=== PATIENT | female | born 1975 | race Caucasian/White ===

== ENCOUNTER 2020-08-13 14:26 | Emergency (ER) | payer SELFPAY ==
[2020-08-13 14:27] VITALS: BP 165/101; BP 167/88; PULSE 100; PULSE 99; RESP 18; TEMP 36.6; O2SAT 97; O2SAT 98; BMI 37.8
[2020-08-13 14:57] VITALS: BP 145/71; PULSE 97; RESP 18; O2SAT 99
[2020-08-13 15:27] VITALS: BP 161/81; PULSE 98; RESP 18; O2SAT 99
[2020-08-13 15:30] VITALS: BP 156/81; PULSE 97; RESP 17; O2SAT 97
--- NOTE | 2020-08-13 15:30 | [facility].EDGENADL ---
ED Disposition Clinical Impression: Toothache, Dental caries, Tinea capitis, Mouth pain Disposition: Home, Self-Care Condition on Discharge: Good Additional Instructions: Griseofulvin and clindamycin as prescribed. Peridex mouthwash. You are being provided with a list of physicians available for follow-up of your condition. Please call a physician on this list to arrange a follow-up appointment as soon as possible. Follow-up with ENT for mouth sores. Prescriptions: clindamycin HCL [Clindamycin HCl] 300 mg PO QID #40 cap Prescription Printed Griseofulvin, Microsize [Griseofulvin] 500 mg PO DAILY #56 tab Prescription Printed Chlorhexidine Gluconate [Peridex] 15 ml MM BID #1 bottle Prescription Printed Referrals: PCP,María [Primary Care Provider] - Byron Almaguer MD [Staff Physician] - - Critical Care Critical Care Time: No Attestation: On 08/13/20, the high probability of a clinically significant, sudden or life threatening deterioration of the following system(s) required my full and direct attention, intervention and personal management. The time I documented below is in addition to time spent performing reported procedures but includes the following listed in this critical care notation. Medical Decision Making - Artemio Inquiry Pt receiving controlled substance: No Vital Signs: 08/13/20 14:27 08/13/20 14:57 08/13/20 15:27 Temperature 97.9 F Temperature Source Oral Pulse Rate [Right] 99 H 97 H 98 H Respiratory Rate 18 18 18 Blood Pressure [Right Arm] 165/101 H 145/71 H 161/81 H Blood Pressure Mean [Right Arm] 122 95 107 Blood Pressure Source [Right Arm] Automatic Cuff Blood Pressure Position [Right Arm] Sitting Sitting Supine 02 Sat by Pulse Oximetry 97 99 99 08/13/20 15:30 08/13/20 16:00 Temperature Temperature Source Pulse Rate [Right] 97 H 102 H Respiratory Rate 17 16 Blood Pressure [Right Arm] 156/81 H 167/88 H Blood Pressure Mean [Right Arm] 106 114 Blood Pressure Source [Right Arm] Blood Pressure Position [Right Arm] Supine Sitting 02 Sat by Pulse Oximetry 97 99 Medical Decision Narrative: Patient requests antibiotic, medicated mouthwash, treatment for tinea capitis. General Adult HPI - General Chief complaint: PAIN Stated complaint: possible cysts in mouth, swollen lymph nodes Time Seen by Provider: 08/13/20 16:13 Mode of Arrival: Family Vehicle Limitations: No Limitations Description of Symptoms (Recalled from ER Triage Doc. by RN): PT C/O SWOLLEN LYMP NODES, SORE THROAT, LESIONS ON TOUNGE AND POSSIBLE DENTAL ABSCESS. PT REPORTS SYMPTOMS HAVE BEEN OCCURING FOR THE LAST 6 MONTHS. PT DENIES ANY FEVERS, CHILLS, N/V/D. - History of Present Illness HPI narrative: Patient states that beginning in 2019 she had 32 knots on her head. Also had knots in her mouth. Had to have 3 teeth removed in 2017. States that she has been referred to ENT but she never did go for follow-up. She now has multiple complaints. She feels like she has sores on the inside of her mouth and the right buccal area, toothache of her right rearmost mandibular molar, swollen lymph nodes in her neck, she also believes that she has ringworm of her scalp. She has bare areas and hair that breaks off. - Related Data Previous Rx's Medication Instructions Recorded Chlorhexidine Gluconate [Peridex] 15 ml MM BID #1 bottle 08/13/20 Griseofulvin, Microsize 500 mg PO DAILY #56 tab 08/13/20 [Griseofulvin] clindamycin HCL [Clindamycin HCl] 300 mg PO QID #40 cap 08/13/20 Allergies Allergy/AdvReac Type Severity Reaction Status Date / Time morphine Allergy Verified 08/13/20 16:20 [facility] History - Hepatitis A Screen Drug use history?: No High risk sexual behaviors?: No History of sexually transmitted infection?: No Currently employed?: No Childcare worker?: No Do you have indoor plumbing?: Yes Do you have electricity?: Yes Attestation statement:: This patient has been screened for
[2020-08-13 16:00] VITALS: BP 167/88; PULSE 102; RESP 16; O2SAT 99
[2020-08-13 16:50] VITALS: BP 167/88; PULSE 102; RESP 16; TEMP 36.6; O2SAT 99
== END 2020-08-13 16:55 | disposition home or self-care (01) ==
PROVIDERS: Emergency Provider Emergency Medicine
DX: K13.79 Other lesions of oral mucosa (principal); B35.0 Tinea barbae and tinea capitis; Z88.5 Allergy status to narcotic agent
CPT/HCPCS: 99283